=== PATIENT | male | born 1965 | race Caucasian/White ===

== ENCOUNTER 2016-07-16 08:00 | Emergency (ER) | payer MEDICARE, MEDICAID ==
[~2016-07-16] VITALS: Ht 187.9 cm
[2016-07-16 08:00] VITALS: BP 00/00
[~2016-07-16 08:00] MED LIST: ADVIL200 MG PO; ARTANE2 MG PO; ASPIRIN325 MG PO; CARBIDOPA25 MG PO; CIPROFLOXACIN2.5 M1 OPH; CLARINEX5 MG PO; CLARITIN10 MG PO; CLINDAMYCIN150 MG PO; CLONAZEPAM0.5 M1 PO; CLONAZEPAM0.5 MG PO; CLONAZEPAM1 M1 PO; FLOMAX0.4 MG PO; FOSAMAX70 M1 PO; IBUPROFEN800 MG PO; MIRALAX POWDER255 GM PO; MIRALAX17 GM PO; MIRTAZAPINE15 M2 PO; MOM30 ML PO; MOTRIN600 MG PO; MYLANTA 150 ML150 M1 PO; NORCO 10-325 T1 EACH PO; OMEPRAZOLE20 MG PO; OMNICEF300 MG PO; PHARMASSURE FO0.4 MG PO; PRILOSEC40 M1 PO; PURE & GENTLE 115 ML OP; REMERON45 M1 PO; REMERON45 MG PO; ROBITUSSIN5 ML PO; ROLAIDS PO; SEIZURE MED; SINEMET 25-1001 TA1 PO; SINGULAIR10 M1 PO; TRIAMTERENE/HCT1 CAP PO; TRIHEXYPHENIDYL2 M3 PO; TRILEPTAL150 MG PO; TRILEPTAL300 MG PO; VISINE ADVANCED15 ML OPH; VITAMIN B121000 MC1 PO; VITAMIN D400 I1 PO; VOLTAREN75 MG PO; XANAX0.25 MG PO; ZETIA10 MG PO; [UNRECOGNIZED DRUG - OTHER] PO
== END 2016-07-16 10:45 | disposition expired ==
LOC: ED 08:00
DX: I46.9 Cardiac arrest, cause unspecified (principal); I10 Essential (primary) hypertension; F32.9 Major depressive disorder, single episode, unspecified; K21.9 Gastro-esophageal reflux disease without esophagitis; E78.5 Hyperlipidemia, unspecified; Z88.0 Allergy status to penicillin; Z79.899 Other long term (current) drug therapy